=== PATIENT | female | born 1975 | race Caucasian/White ===

== ENCOUNTER 2019-03-02 15:03 | Outpatient (CLI) | payer OTHER ==
--- NOTE | 2019-03-02 15:22 | CT ---
CT BRAIN WITHOUT CONTRAST: HISTORY: Non intractable episodic headache FINDINGS: No evidence of acute infarct, hemorrhage, midline shift or abnormal extra-axial fluid collections is seen. The ventricular size is appropriate and the basilar cisterns are patent. The bony calvarium is intact. The visualized paranasal sinuses and mastoid air cells are well aerated. IMPRESSION: No CT evidence of acute intracranial process.
== END 2019-03-02 15:04 | disposition home or self-care (01) ==
LOC: CT 15:03
PROVIDERS: ATTEND Family Medicine
DX: R51 Headache (principal)
CPT/HCPCS: 70450

== ENCOUNTER 2020-12-30 11:02 | Outpatient (CLI) | payer OTHER | END 2020-12-30 11:03 | disposition home or self-care (01) | LOC: BICMAMMO 11:02 | PROVIDERS: ATTEND Family Medicine | DX: Z12.31 Encounter for screening mammogram for malignant neoplasm of breast (principal); Z98.890 Other specified postprocedural states | CPT/HCPCS: 77063; 77067 ==

== ENCOUNTER 2021-01-02 12:57 | Outpatient (CLI) | payer OTHER | END 2021-01-02 12:58 | disposition home or self-care (01) | LOC: BICULT 12:57 | PROVIDERS: ATTEND Family Medicine | DX: R92.8 Other abnormal and inconclusive findings on diagnostic imaging of breast (principal) ==